=== PATIENT | male | born 1995 | race Caucasian/White ===

== ENCOUNTER 2020-06-27 17:13 | Emergency (ER) | payer OTHER ==
[~2020-06-27] VITALS: Ht 182.9 cm; Wt 74.8 kg
[2020-06-27] MEDS ORDERED: TYLENOL325 MG (17:45)
== END 2020-06-27 21:01 | disposition home or self-care (01) ==
LOC: ER 17:13
DX: B34.9 Viral infection, unspecified (principal); Z03.818 Encounter for observation for suspected exposure to other biological agents ruled out